=== PATIENT | male | born 1990 | race Caucasian/White ===

== ENCOUNTER 2016-04-28 13:05 | Emergency (ER) | payer OTHER ==
[~2016-04-28] VITALS: Ht 182.9 cm; Wt 83.9 kg
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
[2016-04-28] MEDS ORDERED: ORPHENADRINE 60 MG/2 ML (NORFLEX) AMP IM ONE (13:30)
[2016-04-28] MEDS ORDERED: KETOROLAC 60 MG/2 ML VIAL IM ONE (13:30)
[2016-04-28] MEDS ORDERED: ONDANSETRON 4 MG (ZOFRAN) ORAL DISSOLVE TAB ONE (13:49)
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
[2016-04-28] MEDS ORDERED: TRAM-42 PO (14:13)
[2016-04-28] MEDS ORDERED: NAPR500T PO (14:13)
[2016-04-28 14:20] VITALS: BP 138/98
== END 2016-04-28 14:20 | disposition home or self-care (01) ==
LOC: ER 13:08
DX: S13.9XXA Sprain of joints and ligaments of unspecified parts of neck, initial encounter (principal); V43.52XA Car driver injured in collision with other type car in traffic accident, initial encounter; Y92.414 Local residential or business street as the place of occurrence of the external cause; Y99.8 Other external cause status
CPT/HCPCS: 70450; 72125; 96372; 99283